=== PATIENT | male | born 1960 | race Caucasian/White ===

== ENCOUNTER 2017-07-10 06:25 | Emergency (ER) | payer OTHER, SELFPAY ==
[2017-07-10 06:26] VITALS: BP 162/134; PULSE 102; RESP 20; TEMP 36; O2SAT 96; BMI 28.3
--- NOTE | 2017-07-10 06:47 | ED.VISSUMM ---
- ER Visit Summary Date of Service: 07/10/17 Chief Complaint: [] Back pain with radiculopathy History of Present Illness: The patient is a 56 M planing of back pain for the last 2-4 weeks. He saw orthopedics yesterday and had x-rays told he has arthritis changes. He was given Flexeril and prednisone to try to calm down his radiculopathy. He is having pain across his low back mostly with radiation into his right lower extremity. Yesterday and today while trying to sleep he had radicular pains in his left leg. No loss of bowel or bladder function. No fevers or chills. There is movement related. No previous injury that he can remember. He supposed to start physical therapy. It is not talked about an MRI. He had a CT of his abdomen and pelvis in 2013 that showed no AAA. Physical Examination: Vital signs reviewed General: Well-nourished well-developed Head: Normocephalic atraumatic Eyes: Pupils equal round and reactive to light extraocular movements intact ENT: TMs clear no hemotympanum no trauma Neck: Nontender full range of motion Cardiovascular: Regular rate rhythm no murmurs normal S1-S2 Respiratory: No distress clear to auscultation bilaterally chest nontender Abdomen: Soft nontender nondistended normal bowel sounds no masses Back: Is across lower lumbar spine. No swelling or deformity. Decreased range of motion secondary to pain. Extremities: Nontender active range of motion ?4 extremities no trauma Skin: Normal color no trauma Neuro alert oriented cranial nerves II through XII intact normal strength sensation reflexes Test Results: [] Emergency Department Course and Treatment: [] This time is for the patient has suspected herniated disc with radiculopathy. I do not feel he has a cauda equina syndrome. He was given a shot of Dilaudid will be given a short course of Percocet for home. He was told not to take NSAIDs as he has a bump in his creatinine. He will continue prednisone and Flexeril follow-up as an outpatient. I do not feel he needs an emergent MRI. Treatment Plan: [] Disposition: [] Impression: [] Lumbar back pain with acute radiculopathy This note was generated with [employer] dictation software. It may contain incorrect words, spelling, and punctuation that were not noted in review of the chart prior to signing ED Disposition - Plan for ED Patient: Chief Complaint: Lower Extremity Injury Referrals: Aki Rodriguez DO [Primary Care Provider] -
--- NOTE | 2017-07-10 06:51 | DCINST.ED_ITS ---
ED Disposition - Plan for ED Patient: Disposition: Home or Assisted Living Chief Complaint: Lower Extremity Injury Instructions: Causes of Lumbar (Low Back) Pain Prescriptions: Oxycodone HCl/Acetaminophen [Percocet 5/325] 1 - 2 tab PO Q6H PRN PRN 3 Days # 15 tab PRN Reason: Pain Referrals: Aki Rodriguez DO [Primary Care Provider] - Doctor,Your [STAFF PHYSICIAN] -
[2017-07-10] MEDS: HYDROmorphone 1 MG/ML Syringe IM (06:52)
[2017-07-10 07:29] VITALS: BP 148/104; PULSE 72; RESP 16; O2SAT 92
== END 2017-07-10 07:29 | disposition home or self-care (01) ==
PROVIDERS: Emergency Provider Emergency Medicine; Family Provider Preventive Medicine Occupational Medicine; PCP Preventive Medicine Occupational Medicine
DX: M54.16 Radiculopathy, lumbar region (principal); M54.5 Low back pain; Z79.52 Long term (current) use of systemic steroids
CPT/HCPCS: 96372; 99282

== ENCOUNTER → 2020-05-31 18:17 | Outpatient (CLI) | payer OTHER, SELFPAY ==
[2020-05-31 14:01] VITALS: BMI 28.0
== END ==
PROVIDERS: PCP Preventive Medicine Occupational Medicine; Referring Provider Physician Assistant Surgical; Visit Provider Physician Assistant Surgical
DX: Z20.828 Contact with and (suspected) exposure to other viral communicable diseases (principal)
CPT/HCPCS: 87635; U0005; U0003